=== PATIENT | male | born 1975 | race Caucasian/White ===

== ENCOUNTER 2017-04-11 20:06 | Emergency (ER) | payer BC ==
[~2017-04-11] VITALS: Ht 180.3 cm; Wt 94.1 kg
[~2017-04-11 20:06] MED LIST: AMOXICILLIN500 MG PO
[2017-04-11 20:50] LABS: HEMATOCRIT 41.1 % (38.0-50.0); MCH 31.8 PG (29.0-34.0); MCV 88.4 FL (86-99); MEAN PLAT.VOLUME 9.3 uM^3 (9.0-12.4); PLATELET COUNT 327 K/uL (156-360); RBC DIS.WIDTH-CV 12.5 % (11.8-14.6); RBC DIS.WIDTH-SD 40.3 % (39-53); RED BLOOD COUNT 4.65 M/uL (4.00-5.50); WHITE BLOOD COUNT 9.3 K/uL (4.1-10.2)
[2017-04-11 20:58] LABS: CHLORIDE 102 mEq/L (99-109); POTASSIUM 4.3 mEq/L (3.7-5.4); SODIUM 139 mEq/L (136-147)
[2017-04-11 21:01] LABS: GLUCOSE 119 mg/dL (70-99)
[2017-04-11 21:02] LABS: ANION GAP 14 MEQ/L (2-14); TOTAL BILIRUBIN 0.5 mg/dL (0.0-1.0)
[2017-04-11 21:04] LABS: ALKALINE PHOSPHATASE 69 IU/L (3-129); GFR ESTIMATE (CALCULATED) > 59 mL/min/ (58.99-99999)
[2017-04-11 21:05] LABS: UREA NITROGEN (BUN) 9 mg/dL (9-23)
[2017-04-11 21:08] LABS: LIPASE 47 U/L (1.0-51.0)
[2017-04-11 21:23] LABS: ADD MIUA? NO; BILIRUBIN NEGATIVE; BLOOD NEGATIVE; COLOR YELLOW ((YELLOW)); GLUCOSE (STRIP) NEGATIVE; KETONES NEGATIVE; LEUKOCYTES NEGATIVE; NITRITE NEGATIVE; PROTEIN (STRIP) 30; SPECIFIC GRAVITY 1.033 (1.000-1.030); UCUL ADDED? NO; UROBILINOGEN 0.2 MG/DL (0.2-1.0)
[2017-04-11] MEDS ORDERED: BENTYL20 MG PO (22:02)
[2017-04-11] MEDS ORDERED: ZOFRAN ODT4 MG PO (22:02)
[2017-04-11] MEDS ORDERED: PERCOCET 5/31 TABLET PO (22:02)
[2017-04-11 22:26] VITALS: BP 130/99
== END 2017-04-11 22:26 | disposition home or self-care (01) ==
LOC: EME 20:06
PROVIDERS: Nurse Practitioner Family
DX: R10.11 Right upper quadrant pain (principal); R74.0 Nonspecific elevation of levels of transaminase and lactic acid dehydrogenase [LDH]; M54.9 Dorsalgia, unspecified; F17.200 Nicotine dependence, unspecified, uncomplicated
CPT/HCPCS: 76705; 80053; 81003; 83690; 85027; 99281; 99283